=== PATIENT | female | born 1975 | race Caucasian/White ===

== ENCOUNTER 2019-08-01 18:53 | Emergency (ER) | payer OTHER ==
[~2019-08-01] VITALS: Ht 172.7 cm; Wt 71.0 kg
[~2019-08-01 18:53] MED LIST: AMOX1TAB10 PO; IBUP800T48 PO
[2019-08-01 19:10] VITALS: Ht 172.7 cm; Wt 71.0 kg
[2019-08-01] MEDS ORDERED: DIPHENHYDRAMINE 50 MG INJ IV ONE (20:30)
[2019-08-01] MEDS ORDERED: SOD CHLORIDE 0.9% 1,000 ML IV ONE (20:30)
[2019-08-01] MEDS ORDERED: METOCLOPRAMIDE 10 MG INJ IV ONE (20:30)
[2019-08-01] MEDS ORDERED: DEXAMETHASONE 10 MG/ML 1 ML INJ IV ONE (22:30)
[2019-08-01 22:36] VITALS: BP 128/75; PULSE 101; RESP 17
== END 2019-08-01 22:36 | disposition home or self-care (01) ==
LOC: FTE 18:53
DX: J32.9 Chronic sinusitis, unspecified (principal)
CPT/HCPCS: 70450; 70486; 80053; 81001; 81025; 84484; 85025; 85610; 85730; 93005; J1200; J2765; J7030; 36415; 81003; 96361; 96374; 96375; J1100